=== PATIENT | female | born 1940 | race Hispanic/Latino ===

== ENCOUNTER 2022-10-15 10:09 | Emergency (ER) | payer OTHER ==
[~2022-10-15] VITALS: Ht 154.9 cm; Wt 49.4 kg
[2022-10-15 12:24] VITALS: BP 166/87
[2022-10-15] MEDS ORDERED: ACETAMINOPHEN 500 MG TABLET PO STA (12:39)
[2022-10-15] MEDS ORDERED: ACET-66 PO (13:39)
== END 2022-10-15 14:31 | disposition home or self-care (01) ==
LOC: EDH 10:09
DX: M54.6 Pain in thoracic spine (principal); W01.0XXA Fall on same level from slipping, tripping and stumbling without subsequent striking against object, initial encounter; Y93.89 Activity, other specified; Y92.89 Other specified places as the place of occurrence of the external cause; Y99.8 Other external cause status
CPT/HCPCS: 72072; 72100